=== PATIENT | female | born 1935 | race Two or more races ===

== ENCOUNTER 2018-06-29 18:44 | Emergency (ER) | payer SELFPAY ==
[2018-06-29 19:34] LABS: ADD MAN DIFF? NO
[2018-06-29 19:37] LABS: WHITE BLOOD COUNT 8.9 10^3/ul (4.8-10.8)
[2018-06-29 19:37] LABS: BASOPHILS % 0.2 % (0.0-2.0); EOSINOPHILS % 0.3 % (0.0-7.0); HEMOGLOBIN 12.5 g/dl (12.0-16.0); LYMPHOCYTES # 1.9 10^3/ul (0.8-2.9); LYMPHOCYTES % 21.8 % (15.0-51.0); MEAN CORPUSCULAR HEMOGLOBIN 30.9 pg (29.0-33.0); MEAN CORPUSCULAR HGB CONC 33.8 g/dl (32.0-37.0); MEAN CORPUSCULAR VOLUME 91.4 fl (82.0-101.0); MEAN PLATELET VOLUME 9.7 fl (7.4-10.4); MONOCYTE # 0.6 10^3/ul (0.3-0.9); MONOCYTES % 6.6 % (0.0-11.0); NEUTROPHIL # 6.2 10^3/ul (1.6-7.5); NEUTROPHILS % 69.5 % (39.0-77.0); PLATELET COUNT 219 10^3/UL (140-415); RED BLOOD COUNT 4.05 10^6/ul (4.20-5.40); RED CELL DISTRIBUTION WIDTH 11.9 % (11.5-14.5)
[2018-06-29 19:43] LABS: ADD UMIC NO; UR ASCORBIC ACID NEGATIVE (NEGATIVE); UR BILIRUBIN (Dip) NEGATIVE (NEGATIVE); UR BLOOD (Dip) NEGATIVE (NEGATIVE); UR CLARITY CLEAR (CLEAR); UR COLOR STRAW (YELLOW); UR GLUCOSE (Dip) 3+ mg/dL (NEGATIVE); UR KETONES (Dip) NEGATIVE (NEGATIVE); UR LEUKOCYTE ESTERASE (Dip) NEGATIVE Leu/ul (NEGATIVE); UR NITRITE (Dip) NEGATIVE (NEGATIVE); UR SPECIFIC GRAVITY (Dip) 1.001 (1.003-1.030); UR TOTAL PROTEIN (Dip) NEGATIVE (NEGATIVE); UR UROBILINOGEN (Dip) NEGATIVE (NEGATIVE)
[2018-06-29 20:06] LABS: ANION GAP 10 (5-13); BLOOD UREA NITROGEN 33 mg/dl (7-20); CALCIUM 9.4 mg/dl (8.4-10.2); CARBON DIOXIDE 26 mmol/L (21-31); CHLORIDE 91 mmol/L (97-110); CREATININE 1.07 mg/dl (0.44-1.00); GLUCOSE 268 mg/dl (70-220); MAGNESIUM 1.6 mg/dl (1.7-2.5); PHOSPHORUS 3.7 mg/dl (2.5-4.9); POTASSIUM 4.4 mmol/L (3.5-5.1); SODIUM 127 mmol/L (135-144)
[2018-06-29] MEDS: LABETALOL HCL 20MG INJ IV (20:11)
[2018-06-29] MEDS: SOD CHLORIDE 0.9% 520 ML IV (20:16)
[2018-06-29 20:18] LABS: TROPONIN-I < 0.012 ng/ml (0.000-0.120)
[2018-06-29 20:42] LABS: Allen Test ACCEPTAB; MODE ROOM AIR; MetHgb Venous 0.4 %; Sample Type Blood venous; Site VENOUS LINE; Venous COHb 0.3 %; Venous Oxygen Sat 57.4 mmHG (55.0-75.0); Venous Total Hemglobin 12.6 g/dl
== END 2018-06-29 22:00 | disposition home or self-care (01) ==
LOC: E/R 18:44
DX: R42 Dizziness and giddiness (principal); E86.0 Dehydration; I10 Essential (primary) hypertension; E11.9 Type 2 diabetes mellitus without complications
CPT/HCPCS: 36415; 70450; 80048; 81003; 82803; 82962; 83735; 84100; 84484; 85025; 93005; 96360; 99285-25

== ENCOUNTER 2018-06-30 11:48 | Emergency (ER) | payer SELFPAY ==
[2018-06-30 12:54] LABS: ADD MAN DIFF? NO
[2018-06-30 13:01] LABS: WHITE BLOOD COUNT 9.3 10^3/ul (4.8-10.8)
[2018-06-30 13:01] LABS: BASOPHILS % 0.2 % (0.0-2.0); EOSINOPHILS % 0.3 % (0.0-7.0); HEMATOCRIT 36.3 % (37.0-47.0); HEMOGLOBIN 12.4 g/dl (12.0-16.0); LYMPHOCYTES # 2.3 10^3/ul (0.8-2.9); LYMPHOCYTES % 24.5 % (15.0-51.0); MEAN CORPUSCULAR HEMOGLOBIN 30.9 pg (29.0-33.0); MEAN CORPUSCULAR HGB CONC 34.2 g/dl (32.0-37.0); MEAN CORPUSCULAR VOLUME 90.5 fl (82.0-101.0); MEAN PLATELET VOLUME 10.1 fl (7.4-10.4); MONOCYTE # 0.8 10^3/ul (0.3-0.9); MONOCYTES % 8.4 % (0.0-11.0); NEUTROPHIL # 6.1 10^3/ul (1.6-7.5); NEUTROPHILS % 65.2 % (39.0-77.0); PLATELET COUNT 199 10^3/UL (140-415); RED BLOOD COUNT 4.01 10^6/ul (4.20-5.40)
[2018-06-30] MEDS: MECLIZINE 12.5 MG TAB PO (13:14)
[2018-06-30 13:19] LABS: ANION GAP 9 (5-13); BLOOD UREA NITROGEN 30 mg/dl (7-20); CALCIUM 9.2 mg/dl (8.4-10.2); CARBON DIOXIDE 25 mmol/L (21-31); CHLORIDE 94 mmol/L (97-110); CREATININE 0.89 mg/dl (0.44-1.00); GLUCOSE 92 mg/dl (70-220); POTASSIUM 5.2 mmol/L (3.5-5.1); SODIUM 128 mmol/L (135-144)
[2018-06-30] MEDS: SOD CHLORIDE 0.9% 500 ML IV (13:32)
[2018-06-30] MEDS: SOD CHLORIDE 0.9% 1,000 ML IV (15:47)
== END 2018-06-30 17:15 | disposition home or self-care (01) ==
LOC: E/R 11:48
DX: E86.0 Dehydration (principal); I10 Essential (primary) hypertension; R40.2142 Coma scale, eyes open, spontaneous, at arrival to emergency department; R40.2252 Coma scale, best verbal response, oriented, at arrival to emergency department; R40.2362 Coma scale, best motor response, obeys commands, at arrival to emergency department; Z79.4 Long term (current) use of insulin
CPT/HCPCS: 36415; 70551; 80048; 85025; 93005; 99285-25